=== PATIENT | female | born 1965 | race Caucasian/White ===

== ENCOUNTER 2017-07-25 10:36 | Emergency (ER) | payer BC ==
[~2017-07-25] VITALS: Ht 162.6 cm; Wt 86.4 kg
[2017-07-25 11:33] LABS: HEMATOCRIT 42.3 % (36.0-46.0); MCH 30.7 PG (29.0-34.0); MCHC 33.3 G/DL (30.0-36.0); MEAN PLAT.VOLUME 12.2 uM^3 (9.5-12.4); PLATELET COUNT 254 K/uL (156-360); RBC DIS.WIDTH-CV 12.2 % (11.8-14.6); RBC DIS.WIDTH-SD 41.1 % (39-53); WHITE BLOOD COUNT 7.6 K/uL (4.1-10.2)
[2017-07-25 11:46] LABS: CHLORIDE 106 mEq/L (99-109); POTASSIUM 4.4 mEq/L (3.7-5.4); SODIUM 143 mEq/L (136-147)
[2017-07-25 11:47] LABS: GLUCOSE 172 mg/dL (70-99)
[2017-07-25 11:48] LABS: ANION GAP 11 MEQ/L (2-14)
[2017-07-25 11:51] LABS: GFR ESTIMATE (CALCULATED) > 59 mL/min/; UREA NITROGEN (BUN) 19 mg/dL (9-23)
[2017-07-25 12:20] LABS: ADD MIUA? YES; BILIRUBIN NEGATIVE; BLOOD LARGE; COLOR YELLOW ((YELLOW)); GLUCOSE (STRIP) NEGATIVE; KETONES NEGATIVE; LEUKOCYTES TRACE; NITRITE NEGATIVE; PROTEIN (STRIP) 30; SPECIFIC GRAVITY 1.021 (1.000-1.030); UROBILINOGEN 0.2 MG/DL (0.2-1.0)
[2017-07-25 12:26] LABS: BACTERIA NONE SEEN /HPF; EPITHELIAL CELLS 1+ /HPF; MUCUS TRACE /LPF; RED BLOOD CELLS TNTC /HPF (0-5); UCUL ADDED? YES; URIC ACID CRYSTALS 1+ /HPF; WHITE BLOOD CELLS 0-5 /HPF (0-5)
[2017-07-25] MEDS ORDERED: MOTRIN600 MG PO (14:36)
[2017-07-25] MEDS ORDERED: ZOFRAN ODT4 MG PO (14:36)
[2017-07-25] MEDS ORDERED: PERCOCET 5/31 TABLET PO (14:36)
[2017-07-25] MEDS ORDERED: FLOMAX0.4 MG PO (14:36)
[2017-07-25] MEDS ORDERED: STOOL SOFTENER250 MG PO (14:38)
[2017-07-25 14:53] VITALS: BP 122/66
== END 2017-07-25 14:54 | disposition home or self-care (01) ==
LOC: EME 10:36
DX: N20.1 Calculus of ureter (principal); E11.65 Type 2 diabetes mellitus with hyperglycemia; E78.5 Hyperlipidemia, unspecified; Z88.2 Allergy status to sulfonamides
CPT/HCPCS: 74176; 80048; 81003; 85027; 87086; 99281; 99284